=== PATIENT | male | born 1970 ===

== ENCOUNTER 2024-08-27 17:36 | Emergency (ER) | payer BC ==
[~2024-08-27] VITALS: Ht 198.1 cm; Wt 139.2 kg
[2024-08-27 17:45] VITALS: BP 156/87; PULSE 76; RESP 16; O2SAT 96
--- NOTE | 2024-08-27 18:32 | RADIOLOGY REPORT ---
EXAM: XR Right Tibia and Fibula, 2 Views CLINICAL INDICATION: LEG PAIN TECHNIQUE: Frontal and lateral views of the right tibia and fibula. COMPARISON: None FINDINGS: BONES/JOINTS: See below. SOFT TISSUES: Soft tissue swelling without acute fracture. No radiopaque foreign body. OTHER FINDINGS: . IMPRESSION: 1. Soft tissue swelling without acute fracture. 2. If symptoms persist, further evaluation with CT is recommended.
--- NOTE | 2024-08-27 23:01 | Physician Documentation ---
History of Present Illness ~ Chief Complaint: Wound Stated Complaint: RT LEG PAIN HPI The 54-year-old male who presents with a wound to his right leg. Medication Reconciliation Allergies: Coded Allergies: hydrochlorothiazide (Verified Allergy, Unknown, 08/27/24) Physical Exam Vital Signs: Heart Rate: 76, Respiratory Rate: 16, BP: 156/87, Pulse Oximetry: 96, Weight: 139.200 Oxygen Flow Rate: 0 Physical Exam VITALS: Reviewed and as above. GENERAL: Alert, nontoxic appearing, no apparent distress. RESPIRATORY: No increased work of breathing, no respiratory distress, speaking in full clear sentences Progress Results/Orders Results/Orders Vital Signs 08/27/24 17:45 Pulse 76 Resp 16 B/P (MAP) 156/87 Pulse Ox 96 O2 Flow Rate 0 Medical Decision Making Findings MSE performed in triage and patient returned to ED lobby by nursing staff Departure Referrals: NO PRIMARY CARE PROVIDER (PCP) ERIC WHELAN Aug 27, 2024 23:01
== END 2024-08-28 01:05 | disposition left against medical advice (07) ==
LOC: ER 17:37
DX: S80.921A Unspecified superficial injury of right lower leg, initial encounter (principal); Z88.8 Allergy status to other drugs, medicaments and biological substances; X58.XXXA Exposure to other specified factors, initial encounter; Y93.89 Activity, other specified; Y92.89 Other specified places as the place of occurrence of the external cause; Y99.8 Other external cause status
CPT/HCPCS: 73590; 99283; A6258; A6449